=== PATIENT | male | born 1950 | race Caucasian/White ===

== ENCOUNTER 2017-07-08 06:59 | Outpatient (CLI) | payer BC ==
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
== END 2017-07-08 07:00 | disposition home or self-care (01) ==
LOC: MRI 06:59
PROVIDERS: ATTEND Family Medicine
DX: M54.16 Radiculopathy, lumbar region (principal); M48.061 Spinal stenosis, lumbar region without neurogenic claudication
CPT/HCPCS: 72148

== ENCOUNTER 2017-07-22 15:39 | Outpatient (CLI) | payer BC ==
[2017-07-22] MEDS ORDERED: Gadobenate Dimeglumine 529 MG/1 ML (20ML VIAL) ONE (16:06)
--- NOTE | 2017-07-23 10:13 | MRI ---
CERVICAL SPINE MRI WITH AND WITHOUT CONTRAST: Date: 07/22/17 INDICATION: Left arm radiculopathy for 2 months. FINDINGS: The susceptibility from anterior fusion spans C5 and C6. There is an associated osteophyte ridge of the postoperative fusion site of C5-6 with mild effacement of ventral thecal sac. There is mild ventral cord effacement at the C4-5 and C5-6 levels. No intrinsic or signal abnormality identified. There is no pathologic intramedullary enhancement. No central canal stenosis at C1-2 or C2-3 levels. C3-4: There is asymmetric right side uncinate process hypertrophy with mild to moderate right neural mo inal narrowing. There is mild left foraminal narrowing. No high grade C3-4 level central canal steno sis. C4-5: Above described ventral cord effacement results from disc osteophyte complex. There is mild bilatera l neural foraminal narrowing. C5-6: Postoperative changes as above with ventral thecal sac and mild ventral cord effacement. No high gra de foraminal stenosis. C6-7: Asymmetric right uncinate process hypertrophy with moderate right and mild left foraminal narrowing. No high grade central canal stenosis. C7-T1: No significant compromise of central canal or neural foramina. IMPRESSION: Postoperative and degenerative findings within the cervical spine as outlined above. POS: [facility]
== END 2017-07-22 15:40 | disposition home or self-care (01) ==
LOC: MRI 15:39
PROVIDERS: ATTEND Family Medicine
DX: M54.2 Cervicalgia (principal); M47.892 Other spondylosis, cervical region; Z98.890 Other specified postprocedural states
CPT/HCPCS: 72156; A9579

== ENCOUNTER 2018-04-03 15:27 | Emergency (ER) | payer MEDICARE ==
[2018-04-03] MEDS ORDERED: traMADol HCl 50 MG TAB ONE ×2 (16:46→21:48)
[2018-04-03 17:06] LABS: Mean Corpuscular HGB CONC 34.7 g/dL (32.0-36.0); Mean Corpuscular Volume 92.1 fL (78.0-98.0); Mean Platelet Volume 5.9 fL (7.4-10.4); Platelet Count 263 thou/uL (130-400); Red Blood Cell (RBC) Count 4.39 mill/uL (4.70-6.10); White Blood Cell (WBC) Count 7.5 thou/uL (4.8-10.8)
[2018-04-03 17:25] LABS: Band 3 % (5-11); Lymphocytes 5 % (21-51); MDiff Complete? YES; Monocytes 14 % (0-10); Neutrophil 77 % (42-75); PLT Morphology Comment Appears Adequate; Polychromasia SLIGHT = 2-3 cells (100X) (0-2/hpf)
[2018-04-03 17:39] LABS: ALT (SGPT) 18 U/L (8-55); AST (SGOT) 15 U/L (5-34); Albumin 4.5 g/dL (3.4-4.8); Alkaline Phosphatase 53 U/L (40-150); Anion Gap 17 mmol/L (10-20); BUN (Urea Nitrogen) 18 mg/dL (8.4-25.7); Bilirubin, Total 2.3 mg/dL (0.2-1.2); Calc. Creatinine Clearance 0 mL/min (70-130); Calcium 9.3 mg/dL (7.8-10.44); Carbon Dioxide 24 mmol/L (23-31); Chloride 101 mmol/L (98-107); Estimated GFR-MDRD 48; Globulin 2.6 g/dL (2.4-3.5); Glucose 103 mg/dL (80-115); Potassium 4.6 mmol/L (3.5-5.1); Protein, Total 7.1 g/dL (5.8-8.1); Sodium 137 mmol/L (136-145)
--- NOTE | 2018-04-03 17:54 | RAD ---
LEFT KNEE RADIOGRAPHS FOUR VIEWS: 04/03/18 PROVIDED CLINICAL HISTORY: Left knee pain and swelling. FINDINGS: No comparisons. Partially threaded cannulated screws are noted traversing the proximal tibia and nyla ons of the metaphysis and epiphyseal regions. No evidence for hardware loosening or migration. No sesar dence for fracture or other acute osseous abnormality. Alignment appears anatomic. Joint spaces appea r preserved. IMPRESSION: No evidence for an acute osseous abnormality. POS: [facility]
[2018-04-03] MEDS ORDERED: Lidocaine 1% (PF) 30 ML VIAL ONE (18:02)
[2018-04-03] MEDS ORDERED: Fentanyl 100 MCG/2 ML VIAL ONE ×2 (18:23→22:53)
[2018-04-03 19:29] LABS: BF Color Red; Body Fluid Source SYNOVIAL FLUID; Clarity Cloudy/Turbid (Clear); RBC Count-Automated 97000 /cumm; Tube # 1; WBC/NonHematic-Auto 1940 /cumm
[2018-04-03 20:02] LABS: BF Segmented Neutrophils 89 %; Cell Count Non Hematic 11 %
[2018-04-03] MEDS ORDERED: Colchicine 0.6 MG TAB PO SCH (23:00)
== END 2018-04-03 23:35 | disposition home or self-care (01) ==
LOC: ERS 15:27
DX: M17.12 Unilateral primary osteoarthritis, left knee (principal); Z79.891 Long term (current) use of opiate analgesic; Z79.899 Other long term (current) drug therapy; Z79.82 Long term (current) use of aspirin
CPT/HCPCS: 20610; 36415; 80053; 82945; 83605; 84157; 84560; 85025; 85060; 85652; 86140; 87040; 87070; 87205; 89051; 89060; 96374; 96376; J2001; J3010

== ENCOUNTER 2018-05-06 11:13 | Outpatient (CLI) | payer MEDICARE ==
--- NOTE | 2018-05-06 14:09 | MRI ---
MRI LEFT KNEE: 05/06/2018 PROVIDED CLINICAL HISTORY: Left knee pain. FINDINGS: There is extensive metallic susceptibility artifact from tibial plateau hardware that markedly limits this evaluation. The medial and lateral menisci cannot be adequately evaluated on the basis of susc eptibility artifact and inhomogeneous sat saturation. The anterior cruciate ligament appears thickened and of increased signal intensity on fluid sensitive sequences, with intact fibers identified, compatible with mucinous degeneration. The posterior cruc iate ligament appears mildly thickened, suggesting sequela of prior injury. The medial collateral li gament appears grossly intact. The visualized portions of the lateral collateral ligamentous complex appear grossly intact. Nonspecific thickening involving the distal popliteus tendon. There is somewhat mass like material within the lateral aspect of the left knee joint, adjacent to th e popliteal tendon, which could reflect intra-articular mass. Given the adjacent susceptibility amanda fact and inhomogeneous fat saturation, this is incompletely evaluated. There is suggestion of a erik lar process deep to the medial head of the gastrocnemius origin. There is no evidence for patellofemoral articular cartilage defect. The femorotibial articular carti virginie is not evaluated. There is a knee joint effusion that is small to mild. IMPRESSION: Markedly limited evaluation due to susceptibility artifact and inhomogeneous fat saturation. Suggest ion of somewhat mass like intraarticular signal alteration at the medial and lateral aspects of the k nee joint, as described above. Correlation with post contrast imaging is recommended. Given the ext ensive metallic susceptibility artifact, CT with and without intravenous contrast may be preferable t o MRI in terms of evaluating for enhancement. POS: [facility]
== END 2018-05-06 11:14 | disposition home or self-care (01) ==
LOC: MRI 11:13
PROVIDERS: ATTEND Orthopaedic Surgery
DX: M23.92 Unspecified internal derangement of left knee (principal)

== ENCOUNTER 2018-06-24 10:24 | Outpatient (CLI) | payer MEDICARE ==
[2018-06-24 11:52] LABS: #Eosinphils 0.3 thou/uL (0.0-0.7); #Lymphocytes 1.1 thou/uL (1.20-3.40); #Monocytes 0.5 thou/uL (0.11-0.59); #Neutrophils 2.4 thou/uL (1.40-6.50); %Basophils 0.8 % (0.0-1.0); %Eosinophils 5.9 % (0.0-10.0); %Lymphocytes 24.3 % (21.0-51.0); %Monocytes 12.6 % (0.0-10.0); %Neutrophils 56.4 % (42.0-75.0); Hemoglobin 14.3 g/dL (14.0-18.0); Mean Corpuscular HGB CONC 33.9 g/dL (32.0-36.0); Mean Corpuscular Volume 94.2 fL (78.0-98.0); Mean Platelet Volume 6.2 fL (7.4-10.4); Platelet Count 253 thou/uL (130-400); RBC Distribution Width 11.8 % (11.5-14.5); Red Blood Cell (RBC) Count 4.48 mill/uL (4.70-6.10); White Blood Cell (WBC) Count 4.3 thou/uL (4.8-10.8)
[2018-06-24 12:17] LABS: Anion Gap 14 mmol/L (10-20); BUN (Urea Nitrogen) 14 mg/dL (8.4-25.7); Calc. Creatinine Clearance 0 mL/min (70-130); Calcium 9.4 mg/dL (7.8-10.44); Carbon Dioxide 23 mmol/L (23-31); Chloride 107 mmol/L (98-107); Estimated GFR-MDRD 59; Glucose 93 mg/dL (80-115); Potassium 4.2 mmol/L (3.5-5.1); Sodium 140 mmol/L (136-145)
--- NOTE | 2018-06-27 20:54 | EKG ---
Test Reason : Blood Pressure : / mmHG Vent. Rate : 052 BPM Atrial Rate : 052 BPM P-R Int : 172 ms QRS Dur : 086 ms QT Int : 446 ms P-R-T Axes : -13 -12 091 degrees QTc Int : 414 ms Sinus bradycardia RSR' or QR pattern in V1 suggests right ventricular conduction delay Inferior infarct (cited on or before 31-MAR-2017) Anterior infarct , age undetermined Abnormal ECG When compared with ECG of 31-MAR-2017 16:49, Nonspecific T wave abnormality, worse in Anterolateral leads Confirmed by Marichuy VARGAS ([id number]) on 06/27/2018 8:54:24 PM Referred By: ELLE Confirmed By:Marichuy VARGAS
== END 2018-06-24 10:25 | disposition home or self-care (01) ==
LOC: LABBT 10:24
PROVIDERS: ATTEND Orthopaedic Surgery
DX: Z01.818 Encounter for other preprocedural examination (principal); S83.242A Other tear of medial meniscus, current injury, left knee, initial encounter
CPT/HCPCS: 80048; 85025; 93005; 93010

== ENCOUNTER 2018-06-25 07:55 | Day surgery (SDC) | payer MEDICARE ==
[2018-06-24 10:56] VITALS: BMI 33.0
[2018-06-25] MEDS ORDERED: Bupivacaine HCl 0.5%/Epinephrine 1:200,000/PF 30 ml Vial ONE (09:46)
[2018-06-25] MEDS ORDERED: Lidocaine 2% w/Epinephrine 1:200K 20 ML VIAL ONE (09:46)
[2018-06-25] MEDS ORDERED: Ondansetron HCl/PF 4 MG/2 ML Vial ONE (10:10)
[2018-06-25] MEDS ORDERED: PROPOFOL 200 MG/20 ML VIAL ONE (10:10)
[2018-06-25] MEDS ORDERED: PHENYLEPHRINE-NS 100 MCG/ML 10 ML SYRINGE ONE ×2 (10:10→12:16)
[2018-06-25] MEDS ORDERED: ePHEDrine/0.9% NaCl/PF SYRINGE 50 mg/10 ml ONE (10:10)
[2018-06-25] MEDS ORDERED: Lidocaine 1% PF 5 ML VIAL ONE (10:10)
[2018-06-25] MEDS ORDERED: PROPOFOL 20 ML ONE (10:26)
[2018-06-25] MEDS ORDERED: Clindamycin/D5W 600 mg/50 ml Premix Bag ONE (11:09)
[2018-06-25] MEDS ORDERED: Fentanyl 100 MCG/2 ML VIAL ONE (11:57)
--- NOTE | 2018-06-25 12:58 | OP ---
DATE OF PROCEDURE: 06/25/2018 TYPE OF PROCEDURE: Left knee arthroscopic partial medial and lateral meniscectomy and removal of mitzy juares. Two Synthes cannulated screws in the left tibia. SURGEON: Geremias Edwards M.D. COMMERCIAL KITCHEN SERVICE TECHNICIAN: None. BLOOD LOSS: Minimal. SPECIMEN: None. DRAINS: None. COMPLICATIONS: None. TOURNIQUET: Not used. NARRATIVE REPORT: The patient was taken to the operating room where general anesthesia was induced. Left leg was prepped and draped in the usual sterile fashion. Scope was placed in the lateral freddy l and probe was placed in medial portal. 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 I used shaver and basket forceps and performed partia l, medial, and lateral meniscectomy. Meniscus probed until stable rim. All the cartilage was covere d with a crystalline material. I do not know if this pseudogout or true gout crystals. There was no t any smooth cartilage in the joint whatsoever. There were deep fissures in the lateral compartment. After irrigating the knee joint, then made 2 small stab wounds, removed the screws under C-arm fluo roscopy, so only small incisions were required. Portals closed with nylon sutures. Surgical incisio ns closed with nylon sutures and sterile dressings applied.
--- NOTE | 2018-06-25 14:01 | RAD ---
LEFT KNEE 2 VIEWS: Date: 06/25/18 HISTORY: Hardware removal. FINDINGS/IMPRESSION: Two spot fluoroscopic intraoperative images of the left knee demonstrate two screws through the proxi mal tibia on the first image, which have been removed, and not seen on the second image. POS: [facility]
== END 2018-06-25 15:10 | disposition home or self-care (01) ==
LOC: SDC 07:55
PROVIDERS: ATTEND Orthopaedic Surgery
PROC: 0SPD04Z Removal of Internal Fixation Device from Left Knee Joint, Open Approach (ICD-10-PCS; principal; 2018-06-25)
PROC: 0SBD4ZZ Excision of Left Knee Joint, Percutaneous Endoscopic Approach (ICD-10-PCS; 2018-06-25)
PROC: 0SBD4ZZ Excision of Left Knee Joint, Percutaneous Endoscopic Approach (ICD-10-PCS; 2018-06-25)
DX: S83.242A Other tear of medial meniscus, current injury, left knee, initial encounter (principal); M94.262 Chondromalacia, left knee; M17.32 Unilateral post-traumatic osteoarthritis, left knee; I10 Essential (primary) hypertension; J45.909 Unspecified asthma, uncomplicated; M10.9 Gout, unspecified; Z79.82 Long term (current) use of aspirin; Z79.899 Other long term (current) drug therapy; Z88.0 Allergy status to penicillin; Z88.8 Allergy status to other drugs, medicaments and biological substances; Z98.1 Arthrodesis status
CPT/HCPCS: 20680; 29880; 73560; 76001; 97116; 97139; G8978; G8979; G8980; J0670; J2001; J2405; J2704; J3010; J3490

== ENCOUNTER 2019-02-24 15:02 | Outpatient (CLI) | payer MEDICARE ==
--- NOTE | 2019-02-24 16:12 | RAD ---
Exam: 4 views lumbar spine HISTORY: Lumbar spondylosis. Low back pain. Tingling down the back of both legs and feet. Comparison none FINDINGS: Weightbearing AP, lateral neutral, lateral flexion and lateral extension views are submitte d. 5 lumbar type vertebral bodies. Mild rightward curvature lumbar spine. Vertebral body height is maint ained. No fracture. Mild loss of disc space height at L5-S1 In the neutral position, 2.6 mm of anterolisthesis of L4 for upon L5. Upon flexion, 2.5 mm of anterol isthesis. Upon extension, anterolisthesis resolves. No additional levels of spondylolisthesis. IMPRESSION: Grade 1 anterolisthesis of L4-L5 as described above
--- NOTE | 2019-02-24 17:12 | MRI ---
MRI LUMBAR SPINE NONCONTRAST: DATE: 02/24/19 HISTORY: 68-year-old male with lumbar spondylosis and bilateral lumbar radiculopathy. COMPARISON: 07/08/17 FINDINGS: For the purposes of this report, it will be assumed that there are 5 lumbar-type vertebrae. The vert ebral body heights are maintained. No major bone marrow signal abnormality. Distended urinary bladder. Mild lateral curvature. No major spondylolisthesis. Disc desiccation at all levels. Moderate disc space narrowing at L3-4, L4-5, and L 5-S1. Mild disc space narrowing at L2-3 and L1-2. Disc bulges indent the ventral aspect of the thecal sac at all levels, but do not cause high grade central spinal canal stenosis. Conus medullaris termi nates at L1-2. With regard to neural foramina and facet joints, the findings by individual levels are as follows: T12-L1: No neural foraminal stenosis or high grade facet DJD. Incidentally, There is a superimposed t iny right paracentral small focal disc herniation. L1-2: No additional findings. L2-3: No additional findings. L3-4: There is a left lateral and far lateral focal disc herniation which superiorly displaces the ex iting left L3 nerve root in the neural foramen, causing moderate left neural foraminal stenosis. The appearance is similar to that of 07/08/17. No contralateral right sided neural foraminal stenosis . Mild bilateral facet DJD. L4-5: Mild to moderate right neural foraminal stenosis. There is a left lateral and far lateral focal disc herniation in the left neural foramen. The exiting left L4 nerve root traverses the inferior as pect of the left neural foramen which is narrowed by this disc herniation. The anterior and superior portions of the left neural foramen are note narrowed. Furthermore, at the left lateral recess, at th e exiting point of the left L5 nerve root from the thecal sac, there is also some crowding. L5-S1: Right moderate to severe facet DJD. Left moderate facet DJD. No neural foraminal stenosis. IMPRESSION: 1. Lumbar spondylosis, with multilevel mild-moderate degenerative disc disease, and lower level moderate facet osteoarthrosis. 2. No high grade central spinal canal stenosis at any level. 3. Left far lateral focal disc herniations at L3-4 and L4-5, chronically mildly impinging on the ir respective left exiting L3 and L4 nerve roots. This appears slightly worse at the left L4-5 neural foramen compared to the prior study of 07/08/17. 4. Distended urinary bladder. VAL Lewis POS: [facility]
== END 2019-02-24 15:03 | disposition home or self-care (01) ==
LOC: BICMRI 15:02
PROVIDERS: ATTEND Anesthesiology Pain Medicine
DX: M47.816 Spondylosis without myelopathy or radiculopathy, lumbar region (principal); M51.36 Other intervertebral disc degeneration, lumbar region; M51.26 Other intervertebral disc displacement, lumbar region; N32.89 Other specified disorders of bladder; M43.16 Spondylolisthesis, lumbar region
CPT/HCPCS: 72110; 72148

== ENCOUNTER 2020-07-27 08:13 | Outpatient (CLI) | payer MEDICARE ==
--- NOTE | 2020-07-27 10:20 | RAD ---
LUMBAR SPINE SERIES 5 VIEWS INCLUDING FLEXION AND EXTENSION: Date: 07/27/2020 HISTORY: Back pain. FINDINGS: The lumbar vertebral bodies are normal in height. There is slight scoliotic change convex to the righ t of the upper lumbar region. Mild disc narrowing at all of the vertebral body levels, more pronounce d in the lower lumbar spine. No spondylolisthesis. There is very limited motion on either these flexi on or extension views. Prominent degenerative facet changes are present. IMPRESSION: Moderate osteoarthritic changes of the spine. POS: [facility]
--- NOTE | 2020-07-27 10:27 | MRI ---
MRI LUMBAR SPINE NONCONTRAST: DATE: 07/27/2020 HISTORY: 69-year-old male with lumbar spondylosis M 47.816 COMPARISON: 03/10/2019 FINDINGS: Urinary bladder is distended. For the purposes of this report, it will be assumed that there are 5 lumbar-type vertebrae. Vertebral body heights are maintained. No major bone marrow signal abnormality. No major spondylolisthesis. Disc desiccation and mild and mo derate disc space narrowing at all levels from L1-2 through L5-S1. Conus medullaris terminates at approximately L1-2. T11-12: Imaged only on the sagittal images, there appears to be a right paramedian small focal disc e xtrusion with superior migration of disc material, in the spinal canal. Axial images were not obtained through this level.This was also present previously, in retrospect. T12-L1:Bilateral paracentral disc protrusions, right greater than left. No central spinal canal steno sis. No high-grade neural foraminal stenosis. L1-2:Mild disc bulge. No central spinal canal stenosis. No high-grade neural foraminal stenosis. L2-3:Disc bulge. Left paracentral aspect of disc bulge or shallow broad-based disc protrusion minimal ly posteriorly displaces the left L3 nerve root. No central spinal canal stenosis. No right neural foraminal stenosis. Mild left neural foraminal stenosis. L3-4:Mild disc bulge. No central spinal canal stenosis. Mild to moderate right neural foraminal steno sis. Moderate left neural foraminal stenosis. Again noted is the left far lateral broad-based disc herniation impinging on and displacing the The left L3 nerve root distal to the left neural foramen. No major interval change. L4-5:Mild to moderate right neural foraminal stenosis. There is a left lateral and far lateral focal disc herniation in the left neural foramen. The exiting left L4 nerve root traverses the inferior aspect of the left neural foramen which is narrowed by this disc herniation. The anterior and superio r portions of the left neural foramen are note narrowed. Furthermore, at the left lateral recess, at the exiting point of the left L5 nerve root from the thecal sac, there is also some crowding. Diff use disc bulge. Central disc extrusion with inferior migration. No interval change. L5-S1:L5-S1: Mild diffuse disc bulge. Right-sided conjoined nerve root. No major interval change. Rig ht moderate to severe facet DJD. Left moderate facet DJD. No neural foraminal stenosis. IMPRESSION: 1. Lumbar spondylosis, with multilevel mild-moderate degenerative disc disease, and lower level moder ate facet osteoarthrosis. 2. No high grade central spinal canal stenosis at any level. 3. Left far lateral focal disc herniations at L3-4 and L4-5, chronically mildly impinging on their re spective left exiting L3 and L4 nerve roots. 4. Distended urinary bladder. 5. No interval change. 6. At T11-12, there is partial visualization of a focal disc extrusion protruding into the right side of the spinal canal, imaged only on sagittal sequences.
== END 2020-07-27 08:14 | disposition home or self-care (01) ==
LOC: BICMRI 08:13
PROVIDERS: ATTEND Surgery
DX: M47.816 Spondylosis without myelopathy or radiculopathy, lumbar region (principal); R29.898 Other symptoms and signs involving the musculoskeletal system; M51.36 Other intervertebral disc degeneration, lumbar region; M51.26 Other intervertebral disc displacement, lumbar region; N32.89 Other specified disorders of bladder; M51.24 Other intervertebral disc displacement, thoracic region
CPT/HCPCS: 72120; 72148

== ENCOUNTER 2020-08-30 06:54 | Outpatient (CLI) | payer MEDICARE ==
[2020-08-30 15:59] LABS: Mean Corpuscular HGB CONC 33.9 G/DL (32.0-36.0); Mean Corpuscular Hemoglobin 32.6 PG (27.0-33.0); Mean Corpuscular Volume 96.3 fl (80.0-100.0); Mean Platelet Volume 9.1 fl (7.4-10.4); Platelet Count 220 10x3/uL (130-400); RBC Distribution Width 12.8 % (11.5-14.5); White Blood Cell (WBC) Count 3.8 10x3/uL (4.5-11.0)
[2020-08-30 16:15] LABS: INR-International Normal Ratio 1.1; PTT 27.2 sec (22.0-33.0); Prothrombin Time 11.6 sec (9.5-12.1)
[2020-08-31 03:12] LABS: SARS-CoV-2 MS2 Positive; SARS-CoV-2 N Gene Negative; SARS-CoV-2 S Gene Negative; SARS-CoV-2 by NAA Not Detected (NotDetected); SARS-CoV-2 orf1ab Negative
== END 2020-08-30 06:55 | disposition home or self-care (01) ==
LOC: LABBT 06:54
PROVIDERS: ATTEND Surgery
DX: Z01.818 Encounter for other preprocedural examination (principal); M51.16 Intervertebral disc disorders with radiculopathy, lumbar region; M48.061 Spinal stenosis, lumbar region without neurogenic claudication; Z20.828 Contact with and (suspected) exposure to other viral communicable diseases
CPT/HCPCS: 85027; 85610; 85730; 93005; U0003; 87635; 93010

== ENCOUNTER 2020-09-04 10:54 | Inpatient (IN) | payer MEDICARE ==
[~2020-09-04 10:54] MED LIST: Glycopyrrolate 0.2 MG/ML 5 ML SYRINGE ONE; Lidocaine 1% PF 5 ML VIAL ONE; Ondansetron PF 4 MG/2 ML Vial ONE; PHENYLEPHRINE-NS 100 MCG/ML 10 ML SYRINGE ONE; PROPOFOL 200 MG/20 ML VIAL ONE; Rocuronium Bromide 10 MG/ML (10ML VIAL) ONE; ePHEDrine 50 MG/ML VIAL ONE
[2020-09-04] MEDS ORDERED: Thrombin 5000 UNITS/5 ML VIAL ONE ×2 (11:02→15:05)
[2020-09-04] MEDS ORDERED: Clindamycin/D5W 900 mg/50 ml Premix Bag ONE ×2 (11:08→22:11)
[2020-09-04] MEDS ORDERED: Levofloxacin 500 mg/D5W 100 ml Premix Bag ONE (11:08)
[2020-09-04] MEDS ORDERED: Fentanyl 100 MCG/2 ML VIAL ONE ×4 (13:23→19:26)
[2020-09-04] MEDS ORDERED: Albumin 5% 500 ML ONE (14:37)
[2020-09-04] MEDS ORDERED: Phenylephrine 10 MG/ML VIAL ONE (14:47)
[2020-09-04] MEDS ORDERED: PHENYLEPHRINE-NS 100 MCG/ML 10 ML SYRINGE ONE (14:47)
[2020-09-04] MEDS ORDERED: Promethazine HCl 25 MG/ML VIAL IM PRN (15:43)
[2020-09-04] MEDS ORDERED: Ondansetron HCl/PF 4 MG/2 ML Vial IVP PRN (15:43)
[2020-09-04] MEDS ORDERED: PACU-Morphine 4MG/ML VIAL SLOW IVP PRN (15:43)
[2020-09-04] MEDS ORDERED: Morphine Sulfate 2 MG/ML SYRINGE SLOW IVP PRN (15:43)
[2020-09-04] MEDS ORDERED: Promethazine HCl 25 MG/ML VIAL SLOW IVP PRN (15:43)
[2020-09-04] MEDS ORDERED: HYDROmorphone 2 MG/ML VIAL SLOW IVP PRN (15:43)
[2020-09-04] MEDS ORDERED: SUGAMMADEX SODIUM 200 MG/2 ML VIAL ONE (16:08)
[2020-09-04] MEDS ORDERED: Acetaminophen/Codeine 30-300mg Tablet PO PRN (16:46)
[2020-09-04] MEDS ORDERED: Milk Of Magnesia 30 ML UDCUP PO PRN (16:46)
[2020-09-04] MEDS ORDERED: Bisacodyl 10 MG SUPP PR PRN (16:46)
[2020-09-04] MEDS ORDERED: diphenhydrAMINE 25 MG CAP PO PRN (16:46)
[2020-09-04] MEDS ORDERED: Acetaminophen 325 MG TAB PO PRN (16:46)
[2020-09-04] MEDS ORDERED: Mag-Al 1200 mg/1200 mg/30 ML UDCUP PO PRN (16:46)
[2020-09-04] MEDS ORDERED: traMADol HCl 50 MG TAB PO PRN (16:46)
[2020-09-04] MEDS ORDERED: Ondansetron PF 4 MG/2 ML Vial IVP PRN (16:46)
[2020-09-04] MEDS ORDERED: Meclizine HCl 25 MG TAB PO PRN (16:49)
[2020-09-04] MEDS ORDERED: HYDROmorphone 0.5 MG/0.5 ML SYRINGE ONE ×2 (17:30→17:51)
[2020-09-04] MEDS ORDERED: tiZANidine HCl 4 MG TAB ONE (17:44)
[2020-09-04] MEDS: tiZANidine HCl 4 MG TAB PO PRN (17:50)
[2020-09-04] MEDS ORDERED: Tamsulosin HCl 0.4 MG CAP ONE (18:33)
[2020-09-04] MEDS: Tamsulosin HCl 0.4 MG CAP PO SCH (20:40)
[2020-09-04] MEDS: Losartan 25 MG TAB PO SCH (20:45)
[2020-09-04] MEDS: Clindamycin/D5W 900 MG in Premix Bag 1 BAG IVPB SCH (22:20)
[2020-09-04] MEDS: Sodium Chloride 0.9% 1,000 ML IV SCH (22:26)
[2020-09-05] MEDS ORDERED: Morphine 2 MG/ML VIAL ONE ×2 (00:20→02:38)
[2020-09-05] MEDS: Morphine 2 MG/ML VIAL SLOW IVP PRN ×2 (00:22→03:33)
[2020-09-05] MEDS ORDERED: Ondansetron PF 4 MG/2 ML Vial ONE (02:37)
[2020-09-05] MEDS: Clindamycin/D5W 900 MG in Premix Bag 1 BAG IVPB SCH (05:43)
[2020-09-05] MEDS ORDERED: HYDROcodone/Acetaminophen 7.5/325 mg Tablet ONE ×2 (07:39→12:33)
[2020-09-05] MEDS: HYDROcodone/Acetaminophen 7.5/325 mg Tablet PO PRN ×3 (07:40→16:07)
[2020-09-05] MEDS ORDERED: Diazepam 5 MG TAB PO PRN (08:32)
[2020-09-05] MEDS ORDERED: Diazepam 5 MG TAB ONE (08:37)
[2020-09-05] MEDS ORDERED: Diazepam 5 MG TAB PO SCH (08:45)
--- NOTE | 2020-09-05 09:23 | PRG ---
DATE OF SERVICE: 09/05/2020 Mr. Wong is postoperative day #1 following multilevel lumbar decompression transfacet diskectomy. He is doing well. He has had improvement in his leg pain, but he has not yet mobilized capacity and he is in the PACU still. We will add Valium for muscle spasm reduction and neurologically he is intact. Job ID: [id number]
--- NOTE | 2020-09-05 10:51 | OP ---
DATE OF PROCEDURE: 09/04/2020 WILDLIFE FORENSIC GENETICIST: Katheryn Carreno PA-C LOCATION: OR 11. PREPROCEDURE DIAGNOSES: Low back, multilevel left greater than right lower extremity pain, and radiculopathy with disk extrusion. POSTPROCEDURE DIAGNOSES: Low back, multilevel left greater than right lower extremity pain, and radiculopathy with disk extrusion. PROCEDURES PERFORMED: 1. Left L2-L3, left L3-L4 hemilaminotomies and foraminotomies. 2. Left L3-L4 transfacet diskectomy. 3. L4-L5 laminectomy, partial facetectomy, foraminotomy. 4. Use of operative microscope for microdissection. DESCRIPTION OF PROCEDURE: After informed consent was obtained from the patient, the patient was brought to the OR. Proper patient, pause, and identification were carried out. He was positioned prone on the OR table. All appropriate points were padded. We identified the L2 through L5 dorsal spines and lamina and a linear robbin was made over this region. This area was sterilely cleansed, prepared, and draped. Proper patient, pause, and identification were carried out. The wound was then opened with combination of sharp, monopolar, and blunt dissection. We proceeded to expose the left L2-L3, left L3-L4, and L4-L5 segments. Localization film confirmed area of interest. We then performed left L2-L3, left L3-L4 hemilaminotomies and foraminotomies. We then did a transfacet diskectomy with complete decompression of the exiting left L3 nerve root. We then performed L4-L5 laminectomy, partial facetectomy, foraminotomy. I was going to work into the left L4 foramen and perform a left L4-L5 transfacet diskectomy. 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 I assured freedom of the left L4 nerve root with copious irrigation. Microscope was used for microdissection. The wound was then closed in anatomic layers following sprinkling of vancomycin powder. The patient emerged from anesthesia. Job ID: [id number]
[2020-09-05 11:50] LABS: #Lymphocytes 0.4 thou/uL (1.20-3.40); #Neutrophils 6.5 thou/uL (1.40-6.50); %Lymphocytes 5.6 % (21.0-51.0); %Monocytes 12.3 % (0.0-10.0); %Neutrophils 82.1 % (42.0-75.0); Hemoglobin 12.3 g/dL (14.0-18.0); Mean Corpuscular HGB CONC 34.5 g/dL (32.0-36.0); Mean Corpuscular Hemoglobin 33.5 pg (27.0-31.0); Mean Corpuscular Volume 97.2 fL (78.0-98.0); Mean Platelet Volume 6.3 fL (7.4-10.4); Platelet Count 168 thou/uL (130-400); RBC Distribution Width 11.9 % (11.5-14.5); Red Blood Cell (RBC) Count 3.65 mill/uL (4.70-6.10)
[2020-09-05 12:16] LABS: Anion Gap 15 mmol/L (10-20); BUN (Urea Nitrogen) 18 mg/dL (8.4-25.7); Calc. Creatinine Clearance 60 mL/min (70-130); Calcium 8.2 mg/dL (7.8-10.44); Carbon Dioxide 23 mmol/L (23-31); Chloride 105 mmol/L (98-107); Glucose 125 mg/dL (80-115); Potassium 4.8 mmol/L (3.5-5.1); Sodium 138 mmol/L (136-145)
[2020-09-05] MEDS ORDERED: traMADol HCl 50 MG TAB ONE (13:40)
[2020-09-05] MEDS: Sodium Chloride 0.9% 1,000 ML IV SCH ×2 (16:01→17:57)
[2020-09-05 16:06] VITALS: BMI 34.8
[2020-09-05] MEDS: tiZANidine HCl 4 MG TAB PO PRN ×2 (17:35→23:30)
[2020-09-05] MEDS: Tamsulosin HCl 0.4 MG CAP PO SCH (20:25)
[2020-09-05] MEDS: Losartan 25 MG TAB PO SCH (21:30)
[2020-09-06] MEDS: HYDROcodone/Acetaminophen 7.5/325 mg Tablet PO PRN (02:19)
[2020-09-06] MEDS: Sodium Chloride 0.9% 1,000 ML IV SCH (08:33)
[2020-09-06] MEDS ORDERED: FLU VACC QS2020-21(65YR UP)/PF 240 MCG/0.7 ML SYRINGE IM ONE (09:00)
[2020-09-06] MEDS: tiZANidine HCl 4 MG TAB PO PRN (11:56)
[2020-09-06 12:26] VITALS: BP 116/66; TEMP 98.6
--- NOTE | 2020-09-06 12:59 | DIS ---
DATE OF ADMISSION: 09/05/2020 DATE OF DISCHARGE: 09/06/2020 DIAGNOSES: 1. Lumbar herniated nucleus pulposus. 2. Lumbar stenosis. 3. Lumbar radiculopathy. PROCEDURES: Left L2-L4 hemilaminotomies and foraminotomies with a left L3-L4 trans facet diskectomy, as well as L4-L5 laminectomy, partial facetectomies, and foraminotomies on September 04, 2020. CONSULT: Physical therapy. HOSPITAL COURSE: Mr. Wong is a very pleasant 69-year-old male, who is a professor at [employer], who was hospitalized following the above operation for pain control, monitoring, and therapies. He endorses postoperative low back pain, but denies any leg pain bilaterally. He reports persistent paresthesias in his lower extremities. Initially, he was slow to ambulate, however, his mobilization has improved throughout his hospital stay and working with physical therapy. He has good range of motion and full strength throughout his bilateral lower extremity myotomes. His lumbar wound has dried blood over the incision, however, there are no signs of infection or active wound drainage. The patient has been urinating without difficulty. He states that he feels safe to be discharged home today, and he declined offer for inpatient rehab screening. He will be discharged home with a walker to assist with ambulation. He is stable for discharge today. Postoperative restrictions and wound care were discussed with the patient. He was provided with pain medications and muscle relaxants. Our team will arrange for followup on an outpatient basis in the upcoming weeks for reevaluation and wound check. He will call our office sooner with any questions or concerns. Job ID: [id number]
== END 2020-09-06 12:00 | disposition home or self-care (01) | DRG 520 ==
LOC: SDC 10:54 → SURG A 16:46 → SDC 09-05 16:00 → SURG A 09-05 16:01
PROVIDERS: ADMIT Surgery; ATTEND Surgery
PROC: 01NB0ZZ Release Lumbar Nerve, Open Approach (ICD-10-PCS; principal; 2020-09-04)
PROC: 0SB20ZZ Excision of Lumbar Vertebral Disc, Open Approach (ICD-10-PCS; 2020-09-04)
DX: M48.061 Spinal stenosis, lumbar region without neurogenic claudication (principal); M51.16 Intervertebral disc disorders with radiculopathy, lumbar region; Z88.0 Allergy status to penicillin; I10 Essential (primary) hypertension; Z79.899 Other long term (current) drug therapy; Z79.82 Long term (current) use of aspirin; Z98.890 Other specified postprocedural states
CPT/HCPCS: 76000; 80048; 85025; J1170; J1956; J2270; J2370; J2405; J2704; J3010; J3370; J3490; P9045

== ENCOUNTER 2022-03-25 10:24 | Outpatient (CLI) | payer MEDICARE ==
[2022-03-25 12:50] LABS: Hemoglobin 15.1 g/dL (13.5-17.5); Mean Corpuscular HGB CONC 34.2 g/dL (32.0-36.0); Mean Corpuscular Hemoglobin 32.5 pg (27.0-33.0); Mean Corpuscular Volume 95.1 fl (81.2-95.1); Mean Platelet Volume 9.1 fl (7.4-10.4); Platelet Count 220 10x3/uL (150-450); RBC Distribution Width 12.3 % (11.5-14.5); Red Blood Cell (RBC) Count 4.65 10x6/uL (4.32-5.72); White Blood Cell (WBC) Count 3.3 10x3/uL (3.5-10.5)
[2022-03-25 13:01] LABS: Anion Gap 18 mmol/L (10-20); BUN (Urea Nitrogen) 35 mg/dL (8.4-25.7); Calc. Creatinine Clearance 0 mL/min (70-130); Calcium 9.7 mg/dL (7.8-10.44); Carbon Dioxide 24 mmol/L (23-31); Chloride 104 mmol/L (98-107); Estimated GFR 45; Glucose 90 mg/dL (80-115); Sodium 141 mmol/L (136-145)
[2022-03-25 13:03] LABS: PTT 26.2 sec (22.0-33.0)
== END 2022-03-25 10:25 | disposition home or self-care (01) ==
LOC: LABBT 10:24
PROVIDERS: ATTEND Urology
DX: Z01.818 Encounter for other preprocedural examination (principal); N40.1 Benign prostatic hyperplasia with lower urinary tract symptoms; R33.8 Other retention of urine; N17.9 Acute kidney failure, unspecified; R35.1 Nocturia; M79.7 Fibromyalgia; Z20.822 Contact with and (suspected) exposure to COVID-19; G89.29 Other chronic pain; Z98.890 Other specified postprocedural states
CPT/HCPCS: 80048; 85027; 85610; 85730; 87086; 87811; 93005; 93010

== ENCOUNTER 2022-03-27 05:46 | Observation (INO) | payer MEDICARE ==
[~2022-03-27 05:46] MED LIST changes: +Dexamethasone 20 MG/5 ML VIAL ONE; -Lidocaine 1% PF 5 ML VIAL ONE; -PHENYLEPHRINE-NS 100 MCG/ML 10 ML SYRINGE ONE; -Rocuronium Bromide 10 MG/ML (10ML VIAL) ONE
[2022-03-27] MEDS ORDERED: fentaNYL Citrate/PF 100 MCG/2 ML SYRINGE ONE ×2 (06:37→07:26)
[2022-03-27] MEDS ORDERED: Famotidine/PF 20 mg/2ml Vial ONE (07:20)
[2022-03-27 07:30] LABS: Bilirubin Negative (Negative); Blood, Urine Negative (Negative); Clarity Turbid (Clear); Glucose, Urine (Dipstick) Normal (Negative); Ketone, Urine Negative (Negative); Leukocyte 500 Leu/uL (Negative); Nitrite 2+ (Negative); Protein, Urine (Dipstick) 20 mg/dL (Neg-Trace); Specific Gravity, Urine 1.016 (1.002-1.036); Squamous Epithelial None Seen HPF (0-3); Urobilinogen Normal mg/dL (Less than 2); pH, Urine 8.5 (5.0-9.0)
[2022-03-27 07:39] LABS: Bacteria/HPF 1+ HPF (None Seen)
[2022-03-27 07:40] LABS: Calcium Oxalate Crystals None Seen HPF (None Seen); Triple Phosphate Crystal 1+ HPF (None Seen)
[2022-03-27] MEDS ORDERED: Levofloxacin 500 mg/D5W 100 ml Premix Bag ONE (07:40)
[2022-03-27] MEDS ORDERED: HYDROmorphone 2 MG/ML VIAL SLOW IVP PRN (08:20)
[2022-03-27] MEDS ORDERED: Promethazine HCl 25 MG/ML VIAL IM PRN (08:20)
[2022-03-27] MEDS ORDERED: Meperidine HCl/PF 25 MG/ML VIAL SLOW IVP PRN (08:20)
[2022-03-27] MEDS ORDERED: Promethazine HCl 25 MG/ML VIAL IVPB PRN (08:20)
[2022-03-27] MEDS ORDERED: HYDROmorphone 2 MG/ML VIAL ONE (08:44)
[2022-03-27] MEDS ORDERED: B & O ONE (09:11)
[2022-03-27] MEDS ORDERED: Oxybutynin 5 MG TAB PO PRN (10:14)
[2022-03-27] MEDS ORDERED: Ondansetron PF 4 MG/2 ML Vial IVP PRN (10:14)
[2022-03-27] MEDS ORDERED: Hyoscyamine Sulfate SL 0.125 mg Tablet SL PRN (10:14)
[2022-03-27] MEDS ORDERED: Morphine 2 MG/ML VIAL SLOW IVP PRN (10:14)
[2022-03-27] MEDS ORDERED: hydrALAZINE 20 MG/ML VIAL SLOW IVP PRN (10:14)
[2022-03-27] MEDS ORDERED: Acetaminophen 500 MG TAB PO PRN (10:14)
[2022-03-27] MEDS ORDERED: diphenhydrAMINE 25 MG CAP PO PRN (10:14)
[2022-03-27] MEDS ORDERED: traMADol HCl 50 MG TAB PO PRN (10:15)
[2022-03-27] MEDS ORDERED: Phenazopyridine HCl 100 MG TAB PO PRN (10:37)
[2022-03-27] MEDS: Docusate 100 MG CAP PO SCH (20:18)
[2022-03-27] MEDS ORDERED: Losartan 25 MG TAB PO SCH (21:00)
[2022-03-27] MEDS ORDERED: Non-Formulary Item 1 EACH (Losartan Potassium [Losartan Potassium] 50 MG Tablet) PO SCH (21:00)
[2022-03-28] MEDS: Docusate 100 MG CAP PO SCH (09:29)
[2022-03-28 12:01] VITALS: BP 130/84; TEMP 98.4
[2022-03-28 14:49] VITALS: BMI 29.3
== END 2022-03-28 15:25 | disposition home or self-care (01) ==
LOC: SDC 05:46 → SURG B 11:01
PROVIDERS: ADMIT Urology; ATTEND Urology
PROC: 0VT08ZZ Resection of Prostate, Via Natural or Artificial Opening Endoscopic (ICD-10-PCS; principal; 2022-03-27)
DX: N40.1 Benign prostatic hyperplasia with lower urinary tract symptoms (principal); N13.8 Other obstructive and reflux uropathy; R33.8 Other retention of urine; I11.9 Hypertensive heart disease without heart failure; J45.909 Unspecified asthma, uncomplicated; Z66 Do not resuscitate; Z86.16 Personal history of COVID-19; Z79.899 Other long term (current) drug therapy; Z88.0 Allergy status to penicillin; Z88.6 Allergy status to analgesic agent; Z88.8 Allergy status to other drugs, medicaments and biological substances
CPT/HCPCS: 81001; 88305; 96365; G0378; J1100; J1170; J1956; J2405; J2704; J3490; S0028

== ENCOUNTER 2022-07-21 08:09 | Emergency (ER) | payer OTHER, MEDICARE ==
[2022-07-21] MEDS ORDERED: Ketorolac Tromethamine 30 MG/ML VIAL ONE (10:06)
[2022-07-21] MEDS ORDERED: FENTANYL 50 MCG/ML 1 ML VIAL ONE (10:06)
[2022-07-21 10:16] LABS: Mean Corpuscular HGB CONC 33.5 g/dL (32.0-36.0); Mean Corpuscular Hemoglobin 33.2 pg (27.0-31.0); Mean Platelet Volume 6.3 fL (7.4-10.4); Platelet Count 192 thou/uL (130-400); RBC Distribution Width 12.5 % (11.5-14.5); Red Blood Cell (RBC) Count 4.51 mill/uL (4.70-6.10); White Blood Cell (WBC) Count 6.1 thou/uL (4.8-10.8)
[2022-07-21 10:34] LABS: INR-International Normal Ratio 1.1; PTT 30.9 sec (22.9-36.1); Prothrombin Time 14.7 sec (12.0-14.7)
[2022-07-21 10:35] LABS: ALT (SGPT) 26 U/L (8-55); AST (SGOT) 20 U/L (5-34); Albumin 4.1 g/dL (3.4-4.8); Alkaline Phosphatase 52 U/L (40-110); Anion Gap 13 mmol/L (10-20); BUN (Urea Nitrogen) 24 mg/dL (8.4-25.7); Bilirubin, Total 1.8 mg/dL (0.2-1.2); Calc. Creatinine Clearance 0 mL/min (70-130); Calcium 9.1 mg/dL (7.8-10.44); Carbon Dioxide 25 mmol/L (23-31); Chloride 104 mmol/L (98-107); Estimated GFR 55; Globulin 2.9 g/dL (2.4-3.5); Glucose 112 mg/dL (80-115); Potassium 4.4 mmol/L (3.5-5.1); Sodium 138 mmol/L (136-145)
[2022-07-21 10:37] LABS: Lymphocytes 8 % (21-51); MDiff Complete? YES; Macrocytosis SLIGHT = 6-15 cells (100X) (0-5/hpf); Monocytes 16 % (0-10); Neutrophil 74 % (42-75); Ovalocytes SLIGHT = 2-5 cells (100X) (0-1/hpf); Platelet Morphology Comment Appears Adequate; Reactive Lymphocytes 2 % (0-10); Stomatocytes SLIGHT = 2-5 cells (100X) (0-1/hpf)
== END 2022-07-21 13:02 | disposition home or self-care (01) ==
LOC: ERS 08:09
DX: S80.02XA Contusion of left knee, initial encounter (principal); V91.39XA Hit or struck by falling object due to accident to unspecified watercraft, initial encounter
CPT/HCPCS: 73564; 73700; 80053; 85025; 85610; 85730; J3010; 96374; 96375; J1885

== ENCOUNTER 2024-03-31 09:09 | Outpatient (CLI) | payer MEDICARE | END 2024-03-31 09:10 | disposition home or self-care (01) | LOC: CT 09:09 | PROVIDERS: ATTEND Orthopaedic Surgery | DX: M17.32 Unilateral post-traumatic osteoarthritis, left knee (principal); M21.962 Unspecified acquired deformity of left lower leg ==

== ENCOUNTER 2024-04-04 08:38 | Outpatient (CLI) | payer MEDICARE ==
[2024-04-04 10:40] LABS: #Basophils 0.06 10x3/uL (0.0-0.2); #Eosinphils 0.53 10x3/uL (0.0-0.5); #Monocytes 0.45 10x3/uL (0.0-1.1); #Neutrophils 2.67 10x3/uL (1.5-8.4); %Basophils 1.4 % (0.0-2.0); %Lymphocytes 15.6 % (18.0-47.0); %Monocytes 10.2 % (0.0-10.0); %Neutrophils 60.3 % (40.0-75.0); Hematocrit 43.1 % (38.8-50.0); Hemoglobin 15.1 g/dL (13.5-17.5); Mean Corpuscular Hemoglobin 34.2 pg (27.0-33.0); Mean Corpuscular Volume 97.5 fL (81.2-95.1); Mean Platelet Volume 9.4 fL (7.4-10.4); Platelet Count 204 10x3/uL (150-450); RBC Distribution Width 11.4 % (11.5-14.5); Red Blood Cell (RBC) Count 4.42 10x6/uL (4.32-5.72); White Blood Cell (WBC) Count 4.4 10x3/uL (3.5-10.5)
[2024-04-04 10:57] LABS: INR-International Normal Ratio 1.1; Prothrombin Time 11.9 sec (9.5-12.1)
[2024-04-04 11:05] LABS: Anion Gap 16 mmol/L (10-20); BUN (Urea Nitrogen) 42 mg/dL (8.4-25.7); Calc. Creatinine Clearance 0 mL/min (70-130); Calcium 9.8 mg/dL (7.8-10.44); Carbon Dioxide 24 mmol/L (23-31); Chloride 106 mmol/L (98-107); Estimated GFR 52; Glucose 81 mg/dL (83-110); Potassium 4.5 mmol/L (3.5-5.1); Sodium 141 mmol/L (136-145)
== END 2024-04-04 08:39 | disposition home or self-care (01) ==
LOC: LABBT 08:38
PROVIDERS: ATTEND Orthopaedic Surgery
DX: Z01.818 Encounter for other preprocedural examination (principal); M17.32 Unilateral post-traumatic osteoarthritis, left knee
CPT/HCPCS: 80048; 85025; 85610; 87081; 93005; 93010

== ENCOUNTER 2024-04-12 05:24 | Observation (INO) | payer MEDICARE ==
[2024-04-04 09:07] VITALS: BMI 26.5
[2024-04-12] MEDS ORDERED: Vancomycin (BATCH) 1.5 GM/300 ML BAG ONE (06:08)
[2024-04-12] MEDS ORDERED: Tranexamic Acid 1,000 MG/10 ML VIAL ONE (06:09)
[2024-04-12] MEDS ORDERED: Magnesium 5 GM/10 ML VIAL ONE (06:15)
[2024-04-12] MEDS ORDERED: fentaNYL PF 100 MCG/2 ML SYRINGE ONE (06:18)
[2024-04-12] MEDS ORDERED: PROPOFOL 40 ML ONE (06:20)
[2024-04-12] MEDS ORDERED: Midazolam HCl 2 mg/2 ml Vial ONE ×2 (06:20→06:38)
[2024-04-12] MEDS ORDERED: Sodium Chloride 0.9% 100 ML ONE ×2 (06:28→06:59)
[2024-04-12] MEDS ORDERED: EPINEPHrine 1 MG/ML VIAL ONE (06:31)
[2024-04-12] MEDS ORDERED: Bupivacaine 0.25% HCL 30 ML VIAL ONE (06:31)
[2024-04-12] MEDS ORDERED: fentaNYL 50 mcg/mL 1 mL Vial ONE ×2 (06:37→11:11)
[2024-04-12] MEDS ORDERED: Bupivacaine PF 0.5% 30 ML VIAL ONE (06:38)
[2024-04-12] MEDS ORDERED: Lidocaine 1% (PF) 30 ML VIAL ONE (06:38)
[2024-04-12] MEDS ORDERED: CEFAZOLIN 2 GM VIAL ONE (06:59)
[2024-04-12] MEDS ORDERED: Rocuronium Bromide 10 MG/ML (10ML VIAL) ONE (07:20)
[2024-04-12] MEDS ORDERED: Dexamethasone 20 MG/5 ML VIAL ONE (07:20)
[2024-04-12] MEDS ORDERED: fentaNYL 50 mcg/mL 1 mL Vial SLOW IVP PRN (07:30)
[2024-04-12] MEDS ORDERED: Zolpidem Tartrate 5 MG TAB PO PRN (07:30)
[2024-04-12] MEDS ORDERED: HYDROcodone/Acetaminophen 10/325 mg Tablet PO PRN (07:30)
[2024-04-12] MEDS ORDERED: Ondansetron PF 4 MG/2 ML Vial IVP PRN ×2 (07:30→10:52)
[2024-04-12] MEDS ORDERED: Ropivacaine 0.2% 550 ML 550 ML NERVE BLCK SCH (07:30)
[2024-04-12] MEDS ORDERED: traMADol HCl 50 MG TAB PO PRN ×2 (07:30)
[2024-04-12] MEDS ORDERED: Promethazine HCl 25 MG/ML VIAL IM PRN ×2 (07:30→10:52)
[2024-04-12] MEDS ORDERED: ePHEDrine Sulfate 50 MG/10 ML VIAL ONE (07:47)
[2024-04-12] MEDS ORDERED: PHENYLEPHRINE-NS 100 MCG/ML 10 ML SYRINGE ONE ×2 (07:59→08:12)
[2024-04-12] MEDS ORDERED: hydrALAZINE 20 MG/ML VIAL ONE (08:20)
[2024-04-12] MEDS ORDERED: SUGAMMADEX SODIUM 200 MG/2 ML VIAL ONE ×2 (08:21→08:27)
[2024-04-12] MEDS ORDERED: HYDROmorphone 2 MG/ML VIAL ONE (08:21)
[2024-04-12] MEDS ORDERED: Ondansetron PF 4 MG/2 ML Vial ONE (08:49)
[2024-04-12] MEDS ORDERED: diphenhydrAMINE 25 MG CAP PO PRN (10:52)
[2024-04-12] MEDS ORDERED: Acetaminophen 325 MG TAB PO PRN (10:52)
[2024-04-12] MEDS: HYDROcodone/Acetaminophen 10/325 mg Tablet PO PRN (17:10)
[2024-04-12] MEDS: CEFAZOLIN 2 GM in Sodium Chloride 0.9% 100 ML IVPB SCH ×2 (17:17→17:21)
[2024-04-12] MEDS: Ferrous Gluconate 324 MG TAB PO SCH (19:56)
[2024-04-12] MEDS: Senokot S 8.6-50 MG TAB PO SCH (19:56)
[2024-04-12] MEDS: Aspirin 81 mg Enteric Coated Tablet PO SCH (19:56)
[2024-04-12] MEDS: Vancomycin 1.5 GM in Sodium Chloride 0.9% 250 ML 300 ML IVPB SCH (19:56)
[2024-04-13 05:39] LABS: Hematocrit 37.7 % (42.0-52.0); Hemoglobin 12.9 g/dL (14.0-18.0); Mean Corpuscular HGB CONC 34.2 g/dL (32.0-36.0); Mean Corpuscular Volume 96.4 fL (78.0-98.0); Mean Platelet Volume 9.1 fL (7.4-10.4); Platelet Count 156 10x3/uL (130-400); RBC Distribution Width 11.4 % (11.5-14.5); Red Blood Cell (RBC) Count 3.91 mill/uL (4.70-6.10)
[2024-04-13] MEDS: Multivitamin W/ Minerals 1 TAB PO SCH (08:09)
[2024-04-13 11:30] VITALS: BP 122/72; TEMP 98
== END 2024-04-13 11:40 | disposition home or self-care (01) ==
LOC: SDC 05:24 → SURG A 10:52
PROVIDERS: ADMIT Orthopaedic Surgery; ATTEND Orthopaedic Surgery
PROC: 0SRD0JZ Replacement of Left Knee Joint with Synthetic Substitute, Open Approach (ICD-10-PCS; principal; 2024-04-12)
DX: M17.32 Unilateral post-traumatic osteoarthritis, left knee (principal); I10 Essential (primary) hypertension; J45.909 Unspecified asthma, uncomplicated; M10.9 Gout, unspecified; E78.5 Hyperlipidemia, unspecified; Z88.0 Allergy status to penicillin; Z88.8 Allergy status to other drugs, medicaments and biological substances; Z88.6 Allergy status to analgesic agent; Z79.82 Long term (current) use of aspirin; Z79.4 Long term (current) use of insulin; Z98.890 Other specified postprocedural states
CPT/HCPCS: 0055T; 27447; 64447; 36415; 85027; A4306; C1713; C1776; C1889; J0171; J0360; J0665; J1100; J1170; J2001; J2250; J2405; J2704; J2795; J3010; J3370; J3475; J7050